=== PATIENT | female | born 1985 | race Caucasian/White ===

== ENCOUNTER 2016-06-08 17:29 | Emergency (ER) | payer OTHER ==
[~2016-06-08] VITALS: Ht 160 cm; Wt 56.7 kg
[2016-06-08 17:38] VITALS: BP 114/77; PULSE 102; RESP 16; TEMP 98.9; O2SAT 98
[2016-06-08] MEDS ORDERED: AUGM875T PO (18:40)
--- NOTE | 2016-06-08 19:00 | PD ---
HPI Chief Complaint: ENT Complaint Time Seen by Provider: 18:52 Travel History International Travel<30 days: No Contact w/Intl Traveler<30days: No Traveled to known affect area: No History of Present Illness HPI 31-year-old female presents to the emergency room for evaluation of right-sided sinus pressure, rhinorrhea, and gum pain for the past 3 days. Patient states she started off with an upper respiratory infection including nonproductive cough, congestion, and sore throat 7 days ago but it worsened 3 days ago. He denies fever, chills, nausea, vomiting, or sinus headache. She has been taking [id number] ibuprofen and Mucinex. Ibuprofen improved symptoms but Mucinex did nothing. Patient did not follow up with her primary care physician. Denies chronic medical conditions or daily medications. PFSH Past Medical History Medical History: Denies Significant Hx Influenza Vaccination: No ?: Not LMP: 06/02/16 Past Surgical History Surgical History: No Previous Surgery Social History Alcohol Use: Yes (socially) Tobacco Use: Yes Substance Use: No Allergies-Medications (Allergen,Severity, Reaction): Coded Allergies: Penicillin (Verified Allergy, Severe, 06/08/16) CHEST PAIN Reported Meds & Prescriptions Reported Meds & Active Scripts Active Augmentin (Amoxicillin-Clavulanate) 875-125 mg Tab 875 Mg PO BID 10 Days not for use in CrCl <30 ml/min. Review of Systems Except as stated in HPI: all other systems reviewed are Neg Physical Exam Narrative GENERAL: Well-nourished, well-developed female in no acute distress. Afebrile. Ambulatory. SKIN: Warm and dry. HEAD: Normocephalic. Moderate tenderness to palpation of the right maxillary sinus. EYES: No scleral icterus. No injection or drainage. ENT: Mucosa pink and moist. Moderate erythema without edema or exudates. No uvular edema. No uvular, palatal, or tonsillar deviation. Airway patent. Nasal turbinates appear normal without nasal blood, purulent drainage or septal hematoma. EARS: Bilateral pinnae and external canals appear within normal limits. Bilateral tympanic membranes without erythema, dullness or perforation. NECK: Supple, trachea midline. No JVD or lymphadenopathy. CARDIOVASCULAR: Regular rate and rhythm without murmurs, gallops, or rubs. RESPIRATORY: Breath sounds equal bilaterally. No accessory muscle use. No crackles, rales, wheezes, or rhonchi. Data Data Last Documented VS Vital Signs Date Time Temp Pulse Resp B/P Pulse Ox O2 Delivery O2 Flow Rate FiO2 06/08/16 18:01 18 06/08/16 17:38 98.9 102 114/77 98 MDM Medical Decision Making Medical Screen Exam Complete: Yes Emergency Medical Condition: Yes Medical Record Reviewed: Yes Differential Diagnosis Sinusitis versus upper respiratory infection versus strep throat Narrative Course 31-year-old female presents to the emergency room for evaluation of facial pressure, gum pain, and congestion for the past 3 days. Patient started with upper respiratory infection 7 days ago. Physical exam reveals mild erythema of the pharynx and right-sided facial tenderness. No pain with leaning forward. Given acute worsening of symptoms, this is likely bacterial sinusitis. Patient discharged with Augmentin and told to follow up with the primary care physician or return to the emergency room for worsening symptoms. She understands and agrees to this plan. Diagnosis Primary Impression: Maxillary sinusitis, acute Qualified Code: J01.00 - Acute non-recurrent maxillary sinusitis Referrals: Primary Care Physician Patient Instructions: General Instructions, Sinusitis (ED) Additional Instructions: Rest and drink plenty of fluids. Take Augmentin as directed, until gone. Take ibuprofen with food as directed, as needed for pain. Follow-up with a primary care physician. Return to the emergency room for worsening symptoms. Med/Other Pt SpecificInfo: Prescription(s) given Scripts Amoxicillin-Clavulanate (Augmentin)875-125 mg [id number] Mg PO BID 10 Days Ref 0 not for use in CrCl <30 ml/min. Prov:Oanh Bridges MD 06/08/16 Disposition: 01 DISCHARGE HOME Condition: Stable Negrita Crandall Jun 08, 2016 19:00
== END 2016-06-08 19:05 | disposition home or self-care (01) ==
LOC: PHEFT 17:29
DX: J01.00 Acute maxillary sinusitis, unspecified (principal); Z72.0 Tobacco use
CPT/HCPCS: 99283